=== PATIENT | female | born 1940 | race Caucasian/White ===

== ENCOUNTER 2016-07-11 09:08 | Emergency (ER) | payer MEDICARE, BC ==
[2016-07-11] MEDS ORDERED: ALBUTEROL SULFATE/IPRATROPIUM 3 ML NEBU IH ONE ×3 (09:39→10:10)
[2016-07-11] MEDS ORDERED: LORATADINE 10 MG TABLET PO ONE (09:40)
[2016-07-11] MEDS ORDERED: METHYLPREDNISOLONE SOD SUCC/PF 40 MG/ML VIAL IV ONE (09:40)
[2016-07-11] MEDS ORDERED: LORATADINE 10 MG TABLET ONE (09:45)
[2016-07-11] MEDS ORDERED: METHYLPREDNISOLONE SOD SUCC/PF 125 MG/2 ML VIAL ONE (09:45)
[2016-07-11 09:54] LABS: Hematocrit 34.6 % (37.0-47.0); Hemoglobin 11.4 gm/dL (12.5-16.0); Mean Cell Volume 96.6 fl (78-100); Mean Corpuscular Hemoglobin 31.8 pg (27-31); Mean Corpuscular Hgb Conc 32.9 g/dl (32-36); Mean Platelet Volume 9.5 fl (6.0-9.5); Neutrophil # 5.4 K/mm3 (1.3-6.0); Neutrophil % 58.5 % (42-75.0); Platelet Count 294 K/mm3 (150-450); Red Blood Count 3.58 M/mm3 (4.2-5.4); Red Cell Distribution Width 11.9 % (11.5-14.0); White Blood Count 9.2 K/mm3 (4.0-10.5)
[2016-07-11 10:06] LABS: Anion Gap 12.2 mmol/L (6.8-13.8); BUN/Creatinine Ratio 10.5 (9.0-21.6); Bilirubin, Total 0.5 mg/dL (0.0-1.1); Ca. Corrected For Albumin 9.4 mg/dL (8.4-10.2); Calcium * 8.9 mg/dL (7.9-10.9); Potassium 4.2 mmol/L (3.4-4.6)
--- NOTE | 2016-07-11 10:14 | ERNOTE ---
Date of Service: 07/11/16 Time Seen by Provider: 07/11/16 09:28 Stated Complaint: SYNCOPAL,SICK Presenting Symptoms:: cough Source: patient, family Exam Limitations: no limitations Immunizations: IMMUNIZATION HX Immunizations Up to Date Yes History of Influenza Vaccine Yes Hx Pneumococcal Vaccination Yes Allergies/Adverse Reactions: Allergies meperidine HCl [From Demerol] Allergy (Verified 07/11/16 09:23) morphine Allergy (Verified 07/11/16 09:23) simvastatin Allergy (Verified 07/11/16 09:23) Home Medications: HOME MEDICATIONS Albuterol Sulfate/Ipratropium [Duoneb 2.5-0.5MG/3ML Soln] 3 ml IH TID 03/31/15 [ Last Taken Unknown] Calcium Carbonate/Magnesium Ox [Oyster Shell Calcium-Magnes Tb] 1 each PO DAILY 03/31/15 [Last Taken Unknown] Citalopram Hydrobromide [Celexa] 40 mg PO DAILY 03/31/15 [Last Taken Unknown] Cyanocobalamin (Vitamin B-12) [Vitamin B-12] 1,000 mcg IM Q30D 03/31/15 [Last Taken Unknown] Ergocalciferol (Vitamin D2) [Vitamin D2] 50,000 unit PO Q21D 03/31/15 [Last Taken Unknown] Gabapentin [Neurontin] 200 mg PO TID 03/31/15 [Last Taken Unknown] Levothyroxine Sodium [Tirosint] 75 mcg PO DAILY 03/31/15 [Last Taken Unknown] Meloxicam [Mobic] 15 mg PO BID 03/31/15 [Last Taken Unknown] Metoprolol Tartrate [Lopressor] 25 mg PO BID 03/31/15 [Last Taken Unknown] Omeprazole [Prilosec] 40 mg PO DAILY 03/31/15 [Last Taken Unknown] Pravastatin Sodium 10 mg PO DAILY 03/31/15 [Last Taken Unknown] traZODone HCL [Desyrel] 50 mg PO HS 03/31/15 [Last Taken Unknown] Beclomethasone Dipropionate [Qnasl Children] 40 mcg INH BID 07/11/16 [Last Taken Unknown] predniSONE [Prednisone] 3 tab PO BID #42 tab 07/11/16 [Last Taken Unknown] - History of Present Ilness Narrative: This is a 75-year-old woman who began to cough about 2 weeks ago. She also has had shortness of breath and wheezing. She has a nebulizer with bronchodilator medicine at home which isn't helping much. She is worsening. Today the symptoms became severe enough that she felt as if she might pass out. She has had no fever. She is a nonsmoker, but has this kind of problem about twice every winter, and this is gone on for the last 5 or 6 years. She has a history of chronic sinus problems, worse in the wintertime. She does not have any pets. She has never been allergy tested. The cough is nonproductive. Today, she also feels weak. Timing: getting worse Severity: moderate Frequency/Possible Cause: Reports: occasional episodes Modifying Factors - Improves: Reports: nothing Modifying Factors - Worsens: Reports: activity, coughing, deep breath, lying down Associated Symptoms: Reports: chest pain/soreness, cough, shortness of breath, wheezing, nasal congestion, nasal drainage, lightheadedness. Denies: fever/ chills Prior Treatment: Denies: currently on antibiotics Review of Systems - Review of Systems Constitutional: Present: See HPI EYE: Present: no symptoms reported ENT: Present: See HPI Respiratory: Present: See HPI Cardiology: Present: no symptoms reported Gastrointestinal/Abdominal: Present: no symptoms reported Genitourinary: Present: no symptoms reported Musculoskeletal: Present: no symptoms reported Skin: Present: no symptoms reported Neurological: Present: no symptoms reported Endocrine: Present: no symptoms reported Hematologic/Lymphatic: Present: no symptoms reported Psych: Present: no symptoms reported All Other Systems: All systems neg except as marked - Patient's Past Medical History Patient History - Medical: Anemia, Depression, Hypothyroidism, Osteoarthritis Patient History - Cardiac/Respiratory: No pertinent hx Patient History - Cancer: Breast Patient History - Surgical Procedures: Appendectomy, Hysterectomy - Social History Living Situations: home Alcohol Use: none Drug Use: none Physical Exam - Physical Exam General Appearance: Present: wd/wn, alert, mild distress Eye Exam: Normal inspection: bilateral, PERRL: bilateral, EOMI: bilateral Ears, Nose, Throat: Present: normal ENT inspection, hearing grossly normal, nasal congestion, other - post nasal drip Neck: Present: normal inspection, nontender Respiratory: Present: no respiratory distress, expiration (prolonged), wheezing Cardiovascular/Chest: Present: regular rate, rhythm, no murmur Gastrointestinal/Abdominal: Present: normal bowel sounds, nontender, nondistended, soft, no organomegaly Back Exam: Present: normal inspection, no CVA tenderness, no vertebral tenderness Extremity Exam: Present: normal inspection, no edema Neurological Exam: Present: alert, oriented, normal mood/affect Skin Exam: Present: normal color, warm/dry ED Progress - Results and Orders Patient's Lab Results:: I have reviewed the patient's lab results. - Vital Signs Patient's Vital Signs:: I have reviewed the patient's vital signs. Vital Signs: Vital Signs 07/11/16 09:19 Temperature 36.7 C Pulse Rate 56 L Respiratory 14 Rate Blood Pressure 145/61 O2 Sat by Pulse 97 Oximetry - X-Ray X-Ray #1 X-Ray: chest Interpretation: Interp. by me - non acute - Progress/Reassessment Chief Complaint: Upper Respiratory Symptoms Progress:: Improved Departure - Departure Clinical Impression: Acute asthma exacerbation Qualifiers: Asthma severity: mild persistent Qualified Code(s): J45.31 - Mild persistent asthma with (acute) exacerbation Disposition: Home self-care Condition: Good Instructions: Asthma, Acute Bronchospasm, Allergic Rhinitis Additional Instructions: Followup with your doctor in 1-2 days. Use your nebulizer every four hours while awake. Referrals: Harsha Steel MD [Primary Care Provider] - Prescriptions: predniSONE [Prednisone] 3 tab PO BID #42 tab
[2016-07-11] MEDS ORDERED: ALBUTEROL SULFATE 2.5 MG/0.5 ML VIAL.NEB IH ONE ×2 (10:42→11:11)
[2016-07-11 11:18] VITALS: BP 130/49
== END 2016-07-11 11:40 | disposition home or self-care (01) ==
LOC: ER 09:08
DX: J45.31 Mild persistent asthma with (acute) exacerbation (principal); Z90.710 Acquired absence of both cervix and uterus; Z85.3 Personal history of malignant neoplasm of breast; E03.9 Hypothyroidism, unspecified; F32.9 Major depressive disorder, single episode, unspecified